=== PATIENT | male | born 1970 | race Caucasian/White ===

== ENCOUNTER 2018-10-08 13:18 | Emergency (ER) | payer MEDICAID ==
[2018-10-08] MEDS ORDERED: Bacitracin/Neomycin/Polymyxin B Oint 0.9 GM U/D Packet TOP ONE (13:33)
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
[2018-10-08] MEDS ORDERED: Bacitracin/Neomycin/Polymyxin B Oint 0.9 GM U/D Packet ONE (14:28)
== END 2018-10-08 14:30 | disposition home or self-care (01) ==
LOC: LL.ED 13:18
DX: T33.72XA Superficial frostbite of left knee and lower leg, initial encounter (principal); T33.71XA Superficial frostbite of right knee and lower leg, initial encounter; T33.832A Superficial frostbite of left toe(s), initial encounter; I10 Essential (primary) hypertension; E66.9 Obesity, unspecified; F17.210 Nicotine dependence, cigarettes, uncomplicated; X31.XXXA Exposure to excessive natural cold, initial encounter
CPT/HCPCS: 73660-TA; 99283

== ENCOUNTER 2019-11-09 11:41 | Emergency (ER) | payer MEDICAID ==
[2019-11-09] MEDS ORDERED: EPINEPHrine 0.3 MG/0.3 ML Pen Autoinjector IM ONE (11:44)
[2019-11-09] MEDS ORDERED: Norflurane/HFc 245FA Medium Stream Spray 103.5 ML Can ONE (11:50)
[2019-11-09] MEDS ORDERED: Racepinephrine 2.25% 0.5 ML Neb Soln NEB ONE (12:06)
[2019-11-09] MEDS ORDERED: Sodium Chloride 0.9% Inhalation Soln 3 ML Neb INH PRN (12:06)
[2019-11-09] MEDS ORDERED: methylPREDNISolone Sodium Succinate 125 MG/2 ML SDV ONE (12:14)
[2019-11-09] MEDS ORDERED: Sodium Chloride 0.9% 1,000 ML IV SCH (12:15)
[2019-11-09] MEDS ORDERED: Albuterol/Ipratropium 3.0-0.5 MG/3 ML Neb Soln NEB ONE (12:31)
[2019-11-09] MEDS ORDERED: Albuterol/Ipratropium 3.0-0.5 MG/3 ML Neb Soln ONE (12:32)
[2019-11-09] MEDS ORDERED: Famotidine 20 MG/2 ML SDV ONE (12:46)
--- NOTE | 2019-11-09 13:47 | EDM.PDOC ---
ED HPI GENERAL MEDICAL PROBLEM - General Chief Complaint: Respiratory Problem Stated Complaint: shortness of breath Time Seen by Provider: 11/09/19 11:46 Source of Information: Reports: Patient History Limitations: Reports: Respiratory Distress - History of Present Illness INITIAL COMMENTS - FREE TEXT/NARRATIVE: Pt ate Kiwi about 45 minutes ago Now with allergic reaction Difficulty breathing SOB Throat feels swollen and closed off Took 3 Benadryl at home No previous hx/o same Onset: Today, Sudden Duration: Minutes:, Getting Worse Location: Reports: Generalized Associated Symptoms: Reports: Shortness of Breath Treatments TREASURY AGENT: Reports: Other (see below) Other Treatments TREASURY AGENT: benadryl - Related Data Allergies Allergy/AdvReac Type Severity Reaction Status Date / Time No Known Allergies Allergy Verified 09/05/18 21:21 Home Meds: Home Meds Naproxen Sodium [Aleve] 660 mg PO BID PRN 10/08/18 [History] Albuterol Sulfate [Albuterol Sulfate Hfa] 2 inhalation IH ASDIRECTED PRN [History] Aspirin 162 mg PO BEDTIME 11/09/19 [History] Budesonide/Formoterol Fumarate [Symbicort 80-4.5 MCG] 2 puff IH DAILY 11/09/19 [ History] Lurasidone HCl [Latuda] 40 mg PO DAILY 11/09/19 [History] Oxybutynin Chloride 2.5 mg PO TID 11/09/19 [History] Tamsulosin [Tamsulosin 24 Hr] 0.4 mg PO DAILY 11/09/19 [History] Zolpidem Tartrate 10 mg PO BEDTIME PRN 11/09/19 [History] atorvaSTATin [Lipitor] 20 mg PO BEDTIME 11/09/19 [History] traZODone HCl [Trazodone HCl] 50 mg PO BEDTIME PRN 11/09/19 [History] Past Medical History - Past Health History Medical/Surgical History: Denies Medical/Surgical History Cardiovascular History: Reports: High Cholesterol, Hypertension, Other (See Below) Musculoskeletal History: Reports: Arthritis, Fracture, Osteoarthritis, Other ( See Below) Other Musculoskeletal History: Fracture of the second metacarpal of the right handed 2010 requiring surgery as below. Psychiatric History: Reports: Addiction, Anxiety, Depression, Other (See Below) Other Psychiatric History: History of alcohol abuse Endocrine/Metabolic History: Reports: Obesity/BMI 30+ - Infectious Disease History Infectious Disease History: Reports: Other (See Below) (TB exposure with prophylactic) Other Infectious Disease History: treated preventative for TB 2007 or prior - Past Surgical History Musculoskeletal Surgical History: Reports: Other (See Below) Other Musculoskeletal Surgeries/Procedures:: Ligamental revision and bone resection of the second metacarpal of the right hand in 2011. Social & Family History - Tobacco Use Smoking Status *Q: Current Every Day Smoker Years of Tobacco use: 10 Packs/Tins Daily: 15 - Caffeine Use Caffeine Use: Reports: Soda Other Caffeine Use: 3 sodas per day - Recreational Drug Use Recreational Drug Use: Yes Drug Use in Last 12 Months: No - Living Situation & Occupation Occupation: Unemployed ED ROS GENERAL - Review of Systems Review Of Systems: See Below HEENT: Reports: Other (Throat feels closed off) Respiratory: Reports: Shortness of Breath ED EXAM, GENERAL - Physical Exam Exam: See Below Exam Limited By: Respiratory Distress General Appearance: Anxious, Severe Distress Throat/Mouth: Normal Oropharynx, Other (Hoarse voice) Neck: Supple Respiratory/Chest: Decreased Breath Sounds, Wheezing, Accessory Muscle Use, Retractions Cardiovascular: Regular Rate, Rhythm GI/Abdominal: Non-Tender Course - Vital Signs Last Recorded V/S: Last Vital Signs Temp 98.3 F 11/09/19 11:55 Pulse 111 H 11/09/19 11:55 Resp 24 H 11/09/19 11:55 BP 152/96 H 11/09/19 11:55 Pulse Ox 89 L 11/09/19 11:55 - Orders/Labs/Meds Orders: Active Orders 24 hr Category Date Time Status RT Aerosol Therapy [RC] ASDIRECTED Care 11/09/19 12:06 Active RT Aerosol Therapy [RC] ASDIRECTED Care 11/09/19 12:32 Active Chest 1V Frontal [CR] Stat Exams 11/09/19 11:46 Taken Sodium Chloride 0.9% Med 11/09/19 12:06 Active 3 ml INH ASDIRECTED PRN Medication Orders Sodium Chloride (Sodium Chloride 0.9%) 3 ml INH ASDIRECTED PRN PRN Reason: mix with racepinephrine neb Meds: Medications Generic Name Dose Route Start Last Admin Trade Name Freq PRN Reason Stop Dose Admin Sodium Chloride 3 ml 11/09/19 12:06 Sodium Chloride 0.9% INH ASDIRECTED PRN mix with racepinephrine neb Discontinued Medications Generic Name Dose Route Start Last Admin Trade Name Mindy PRN Reason Stop Dose Admin Albuterol/Ipratropium 3 ml 11/09/19 12:31 Duoneb 3.0-0.5 Mg/3 Ml NEB 11/09/19 12:32 ONETIME ONE Albuterol/Ipratropium Confirm 11/09/19 12:32 Duoneb 3.0-0.5 Mg/3 Ml Administered 11/09/19 12:33 Dose 3 ml .ROUTE .STK-MED ONE Epinephrine HCl 0.3 mg 11/09/19 11:44 Epipen IM 11/09/19 11:45 ONETIME ONE Famotidine Confirm 11/09/19 12:46 Pepcid Administered 11/09/19 12:47 Dose 40 mg .ROUTE .STK-MED ONE Methylprednisolone Sodium Succinate Confirm 11/09/19 12:14 Solu-Medrol Administered 11/09/19 12:15 Dose 125 mg .ROUTE .STK-MED ONE Norflurane Confirm 11/09/19 11:50 Pain Ease Ellery Administered 11/09/19 11:51 Dose 103.5 ml .ROUTE .STK-MED ONE Racepinephrine 0.5 ml 11/09/19 12:06 S-2 2.25% NEB 11/09/19 12:07 ONETIME ONE - Re-Assessments/Exams Free Text/Narrative Re-Assessment/Exam: 11/09/19 13:45 Pt given Epi-pen in ER Also with Solu-medrol 125 mg IV and Pepcid 40 mg IV Pt given Racemic-epi HHN and Albuterol HHN Pt given IVF BP much improved and RA sats now 93% Sats had been in the 80's and required 10 L by NRBM Departure - Departure Time of Disposition: 14:00 Disposition: Home, Self-Care 01 Clinical Impression: Allergic reaction Qualifiers: Encounter type: initial encounter Qualified Code(s): T78.40XA - Allergy, unspecified, initial encounter - Discharge Information *PRESCRIPTION DRUG MONITORING PROGRAM REVIEWED*: Not Applicable *COPY OF PRESCRIPTION DRUG MONITORING REPORT IN PATIENT NIKO: Not Applicable Instructions: Shortness of Breath, Adult, [id number] Referrals: Mihaela Chopra PA-C [Primary Care Provider] - Additional Instructions: Follow up in clinic Sepsis Event Note - Evaluation Sepsis Screening Result: No Definite Risk - Focused Exam Vital Signs: Vital Signs Temp Pulse Resp BP Pulse Ox 11/09/19 11:55 98.3 F 111 H 24 H 152/96 H 89 L 11/09/19 11:49 98.3 F 88 24 H 152/96 H 88 L Date Exam was Performed: 11/09/19 Time Exam was Performed: 13:42 - My Orders Last 24 Hours: My Active Orders 11/09/19 11:46 Chest 1V Frontal [CR] Stat 11/09/19 12:06 RT Aerosol Therapy [RC] ASDIRECTED Sodium Chloride 0.9% 3 ml INH ASDIRECTED PRN 11/09/19 12:32 RT Aerosol Therapy [RC] ASDIRECTED - Assessment/Plan Last 24 Hours: My Active Orders 11/09/19 11:46 Chest 1V Frontal [CR] Stat 11/09/19 12:06 RT Aerosol Therapy [RC] ASDIRECTED Sodium Chloride 0.9% 3 ml INH ASDIRECTED PRN 11/09/19 12:32 RT Aerosol Therapy [RC] ASDIRECTED
[2019-11-09 14:15] VITALS: BP 126/77; PULSE 91
== END 2019-11-09 14:25 | disposition home or self-care (01) ==
LOC: LL.ED 11:41
DX: T78.40XA Allergy, unspecified, initial encounter (principal); I10 Essential (primary) hypertension; E78.00 Pure hypercholesterolemia, unspecified; M19.90 Unspecified osteoarthritis, unspecified site; F41.9 Anxiety disorder, unspecified; F32.9 Major depressive disorder, single episode, unspecified; E66.9 Obesity, unspecified; F17.210 Nicotine dependence, cigarettes, uncomplicated; Z79.899 Other long term (current) drug therapy; Z79.82 Long term (current) use of aspirin
CPT/HCPCS: 71045; 99285; A9270; J2930; J3490; J7030; J7620-GY

== ENCOUNTER 2020-11-10 03:34 | Emergency (ER) | payer MEDICAID ==
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
[2020-11-10] MEDS ORDERED: Bacitracin/Neomycin/Polymyxin B Oint 0.9 GM U/D Packet TOP ONE (04:09)
== END 2020-11-10 04:20 | disposition home or self-care (01) ==
LOC: LL.ED 03:34
DX: S91.332A Puncture wound without foreign body, left foot, initial encounter (principal); J44.9 Chronic obstructive pulmonary disease, unspecified; I10 Essential (primary) hypertension; M19.90 Unspecified osteoarthritis, unspecified site; F41.8 Other specified anxiety disorders; E78.00 Pure hypercholesterolemia, unspecified; E11.9 Type 2 diabetes mellitus without complications; E66.9 Obesity, unspecified; Z68.41 Body mass index [BMI] 40.0-44.9, adult; Z91.018 Allergy to other foods; Z91.040 Latex allergy status; Z79.82 Long term (current) use of aspirin; Z72.0 Tobacco use; Z79.899 Other long term (current) drug therapy; W45.0XXA Nail entering through skin, initial encounter
CPT/HCPCS: 99283

== ENCOUNTER 2020-11-11 03:10 | Emergency (ER) | payer MEDICAID ==
--- NOTE | 2020-11-11 03:36 | EDM.PDOC ---
ED HPI GENERAL MEDICAL PROBLEM - General Chief Complaint: Diabetic Complaint Stated Complaint: HYPOGLYCEMIA Time Seen by Provider: 11/11/20 03:30 Source of Information: Reports: Patient, Old Records ([facility] EMR. No paper hospital chart available.) History Limitations: Reports: Altered Mental Status - History of Present Illness INITIAL COMMENTS - FREE TEXT/NARRATIVE: The patient rode his bicycle to the emergency room for evaluation of low blood sugars at home, including an Accu-Chek in the 40s at about 8:15 PM yesterday evening with some disorientation, blurred vision, headache, increased anxiety, etc.. He did drink some orange juice and eat some food thereafter with home Accu-Chek of 100 mg percent at midnight right before he went to bed. His Accu- Chek was 102 mg percent shortly prior to arrival with the patient concerned that his blood sugar was not higher. He did not have any symptoms at that time, however he wanted to be evaluated. The patient denies any chest pain/pressure, heart flutter, orthostasis, orthopnea, diaphoresis, paresthesias, recent decreased exercise tolerance, or any other anginal-type symptoms. No recent history of abdominal pain, heartburn, nausea, diarrhea, melena, gross hematochezia, or any food intolerance, including fatty foods, etc.. No recent history of abdominal pain, heartburn, nausea, diarrhea, melena, gross hematochezia, or any food intolerance, including fatty foods, etc.. The patient also denies any recent fever, cough, wheezing, dyspnea, etc.. No history of recent headaches, diplopia, change in mental status, or other change in neurological status. Onset: Gradual Onset Date: 11/10/20 Onset Time: 20:15 Duration: Improving Location: Reports: Other (No pain) Quality: Reports: Same as Previous Episode Severity: Mild Improves with: Reports: Other (As above) Worsens with: Reports: None Context: Reports: Other (As above). 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 - Related Data Allergies Allergy/AdvReac Type Severity Reaction Status Date / Time kiwi Allergy Anaphylactic Verified 11/10/20 03:36 Shock Latex, Natural Rubber Allergy Anaphylactic Verified 11/10/20 03:36 Shock Home Meds: Home Meds Naproxen Sodium [Aleve] 660 mg PO BID PRN 10/08/18 [History] Albuterol Sulfate [Albuterol Sulfate Hfa] 2 inhalation IH ASDIRECTED PRN 11/09/19 [History] Aspirin 81 mg PO BEDTIME 11/09/19 [History] Budesonide/Formoterol Fumarate [Symbicort 80-4.5 MCG] 2 puff IH DAILY 11/09/19 [History] Lurasidone HCl [Latuda] 60 mg PO DAILY 11/09/19 [History] atorvaSTATin [Lipitor] 20 mg PO BEDTIME 11/09/19 [History] QUEtiapine [SEROquel] 25 mg PO BEDTIME 11/10/20 [History] Empagliflozin [Jardiance] 10 mg PO DAILY 11/11/20 [History] metFORMIN [Glucophage] 1,000 mg PO BID 11/11/20 [History] Past Medical History Cardiovascular History: Reports: Arrhythmia, High Cholesterol, Hypertension, Other (See Below) Other Cardiovascular History: Short [place] interval. Respiratory History: Reports: COPD Musculoskeletal History: Reports: Arthritis, Fracture, Osteoarthritis, Other (See Below) Other Musculoskeletal History: Fracture of the second metacarpal of the right handed 2010 requiring surgery as below. Psychiatric History: Reports: Addiction, Anxiety, Depression, Psychosis, Other (See Below) Other Psychiatric History: History of alcohol abuse and use of illicit drugs including IV drug use as below. Endocrine/Metabolic History: Reports: Diabetes, Type II, Obesity/BMI 30+ - Infectious Disease History Infectious Disease History: Reports: TB, Other (See Below) Other Infectious Disease History: TB exposure in about 2007 with prophylactic therapy. - Past Surgical History Musculoskeletal Surgical History: Reports: Other (See Below) Other Musculoskeletal Surgeries/Procedures:: Ligamental revision and bone resection of the second metacarpal of the right hand in 2010. - Past Imaging History Past Imaging History: Reports: MRI (MRI of the brain on 08/01/2020.) Social & Family History - Tobacco Use Tobacco Use Status *Q: Current Every Day Tobacco User Tobacco Use Within Last Twelve Months: Cigarettes Years of Tobacco use: 30 Packs/Tins Daily: 1.5 Used Tobacco, but Quit: No Smoking Cessation Information Provided To Patient: Yes - Caffeine Use Caffeine Use: Reports: Coffee, Soda Other Caffeine Use: 3 sodas per day - Recreational Drug Use Recreational Drug Use: Yes Drug Use in Last 12 Months: Yes Recreational Drug Type: Reports: Amphetamines (Speed), Cocaine, Marijuana/Snehal sh, Methamphetamine Recreational Drug Use Frequency: Weekly - Living Situation & Occupation Living situation: Reports: with Family (Mother, who he takes care of.) Occupation: Unemployed ED ROS GENERAL - Review of Systems Review Of Systems: Comprehensive ROS is negative, except as noted in HPI. ED EXAM GENERAL NO PERIP PULSE - Physical Exam Exam: See Below Exam Limited By: No Limitations General Appearance: Alert, WD/WN, No Apparent Distress, Anxious (Moderate to severe) Head: Atraumatic, Normocephalic Neck: Normal Inspection, Supple, Non-Tender, Full Range of Motion. No: Lymphadenopathy (L), Lymphadenopathy (R), Thyromegaly Respiratory/Chest: No Respiratory Distress, Lungs Clear, Normal Breath Sounds, No Accessory Muscle Use, Chest Non-Tender. No: Pleural Rub, Retractions Cardiovascular: Normal Peripheral Pulses, Regular Rate, Rhythm, No Edema, No Gallop, No JVD, No Murmur, No Rub. No: Gallop/S3, Gallop/S4, Friction Rub GI/Abdominal: Normal Bowel Sounds, Soft, Non-Tender, No Organomegaly, No Distention, No Abnormal Bruit, No Mass. No: Guarding (Male) Exam: Deferred Rectal (Males) Exam: Deferred Back Exam: Normal Inspection, Full Range of Motion. No: Muscle Spasm Extremities: Normal Inspection, Normal Range of Motion, Non-Tender, No Pedal Edema, Normal Capillary Refill. No: Stone's Sign Neurological: Alert, Oriented, CN II-XII Intact, Normal Cognition, Normal Gait, No Motor/Sensory Deficits Psychiatric: Anxious (Moderate to severe), Depressed Mood (Moderate with adequate eye contact) Skin Exam: Warm, Dry, Intact, Normal Color, No Rash. No: Diaphoretic, Wound/Incision Lymphatic: No Adenopathy Course - Vital Signs Last Recorded V/S: Last Vital Signs Temp 36.1 C 11/11/20 03:12 Pulse 99 11/11/20 03:12 Resp 14 11/11/20 03:12 BP 134/79 11/11/20 03:12 Pulse Ox 98 11/11/20 03:12 Vital Signs - 24 hr 11/11/20 03:12 Temperature [ 36.1 C Temporal] Pulse, 99 Peripheral [ Left Pulse Oximetry] Respiratory 14 Rate Blood Pressure 134/79 [Left Upper Arm ] O2 Sat by Pulse 98 Oximetry - Orders/Labs/Meds Orders: Active Orders 24 hr Category Date Time Status Blood Glucose Check, Bedside [RC] STAT Care 11/11/20 03:20 Active Labs: Stat Accu-Chek 117 mg percent Meds: None - Radiology Interpretation Free Text/Narrative:: None Departure - Departure Time of Disposition: 04:07 Disposition: Home, Self-Care 01 Condition: Fair Clinical Impression: Mixed anxiety depressive disorder, Tobacco abuse counseling COPD (chronic obstructive pulmonary disease) Qualifiers: COPD type: emphysema Emphysema type: panlobular Qualified Code(s): J43.1 - Panlobular emphysema Hypertension Qualifiers: Hypertension type: essential hypertension Qualified Code(s): I10 - Essential (primary) hypertension Diabetes mellitus Qualifiers: Diabetes mellitus type: type 2 Diabetes mellitus terminal computer operator insulin use: without alf use Diabetes mellitus complication status: without complication Qualified Code(s): E11.9 - Type 2 diabetes mellitus without complications - Discharge Information *PRESCRIPTION DRUG MONITORING PROGRAM REVIEWED*: Not Applicable *COPY OF PRESCRIPTION DRUG MONITORING REPORT IN PATIENT NIKO: Not Applicable Instructions: Steps to Quit Smoking, [id number], Health Risks of Smoking, Type 2 Diabetes Mellitus, Self Care, Adult, [id number], Hypoglycemia, [id number] Referrals: PCP,Unknown [Primary Care Provider] - Forms: ED Department Discharge Additional Instructions: 1. Follow-up with your regular provider later today as discussed for further evaluation of your medical therapy and discussion of your emergency room visits tonight and last night. 2. Low blood sugar precautions as per information provided and discussed, including drinking orange juice, eating sugar, repeating home blood sugar evaluations on an hourly basis thereafter, etc. 3. Stop all tobacco use LUIS as directed/per provided information and consider contacting Quit LIne, etc.. 4. Immediately after this visit verify that your cellular telephone's voicemail has been activated and is empty. Also verify that your home telephone's answering machine is operating properly and has space to receive messages. Note that it is sometimes necessary for us to be able to contact you at a later date to discuss your medical care. 5. Please remember that we are ALWAYS here for you and want to answer any questions you may have. Feel free to call the hospital any time and we call you back LUIS. Sepsis Event Note (ED) - Evaluation Sepsis Screening Result: No Definite Risk - Focused Exam Vital Signs: Vital Signs Temp Pulse Resp BP Pulse Ox 11/11/20 03:12 36.1 C 99 14 134/79 98 - Problem List & Annotations (1) Diabetes mellitus SNOMED Code(s): 17502682 Code(s): E11.9 - TYPE 2 DIABETES MELLITUS WITHOUT COMPLICATIONS Status: Acute Priority: High Current Visit: Yes Annotation/Comment:: Mild hypoglycemic episode at home as above with complete resolution of symptoms prior to arrival. Patient currently takes his Accu-Cheks on a 3 times daily basis with home Accu-Cheks averaging in the 100s by his history. Hypoglycemia precautions, diet, etc. were extensively discussed. Patient likely needs his medications adjusted with previous history of hypoglycemia and currently too tight blood sugar control based on the above history. Close follow-up by regular provider as per discharge instructions. Qualifiers: Diabetes mellitus type: type 2 Diabetes mellitus alf insulin use: without alf use Diabetes mellitus complication status: without complication Qualified Code(s): E11.9 - Type 2 diabetes mellitus without complications (2) Mixed anxiety depressive disorder SNOMED Code(s): 783409096 Code(s): F41.8 - OTHER SPECIFIED ANXIETY DISORDERS Status: Chronic Priority: High Current Visit: Yes Annotation/Comment:: Poor control based on today's and yesterday's exam in the emergency room. By patient history he did have his medications changed earlier yesterday by his regular provider, including initiation of Latuda and Seroquel. Patient is having significantly increase stressors taking care of his sick mother at home. No suicidal ideation today, however some psychosis. Continue to observe closely by his regular provider, including evaluation of his current medications both for his emotional status and his diabetes as above. No persistent insomnia with ER visits at 3 AM both on 11/10 and 11/11. Emotional support was provided. Note history of illicit drug use as above. Consider psychiatric referral, inpatient therapy, etc. depending on his clinical course. (3) COPD (chronic obstructive pulmonary disease) SNOMED Code(s): 22296229 Code(s): J44.9 - CHRONIC OBSTRUCTIVE PULMONARY DISEASE, UNSPECIFIED Status: Chronic Priority: Medium Current Visit: Yes Annotation/Comment:: No recent fever bronchitic type symptoms. Qualifiers: COPD type: emphysema Emphysema type: panlobular Qualified Code(s): J43.1 - Panlobular emphysema (4) Hypertension SNOMED Code(s): 53370897 Code(s): I10 - ESSENTIAL (PRIMARY) HYPERTENSION Status: Chronic Priority: Medium Current Visit: Yes Annotation/Comment:: Blood pressure somewhat elevated in the ER yesterday secondary to his anxiety however under good control today. Continue to observe closely by his regular providers. Qualifiers: Hypertension type: essential hypertension Qualified Code(s): I10 - Essential (primary) hypertension (5) Tobacco abuse counseling SNOMED Code(s): 314833314, 638774767, 850184847 Code(s): Z71.6 - TOBACCO ABUSE COUNSELING Status: Chronic Priority: Medium Current Visit: Yes Annotation/Comment:: Tobacco cessation was once again strongly encouraged, though this may need to be delayed until his emotion al status has improved. Tobacco cessation information was once again provided. - Problem List Review Problem List Initiated/Reviewed/Updated: Yes - My Orders Last 24 Hours: My Active Orders 11/11/20 03:20 Blood Glucose Check, Bedside [RC] STAT - Assessment/Plan Last 24 Hours: My Active Orders 11/11/20 03:20 Blood Glucose Check, Bedside [RC] STAT Assessment:: As above Plan: As above. Extensive precautions were given to the patient, who is in agreement with the treatment plan. See Patient Instructions for further treatment and plan.
== END 2020-11-11 04:05 | disposition home or self-care (01) ==
LOC: LL.ED 03:10
DX: E11.9 Type 2 diabetes mellitus without complications (principal); I10 Essential (primary) hypertension; J43.1 Panlobular emphysema; F41.8 Other specified anxiety disorders; E78.00 Pure hypercholesterolemia, unspecified; E66.9 Obesity, unspecified; Z68.41 Body mass index [BMI] 40.0-44.9, adult; Z71.6 Tobacco abuse counseling; Z91.018 Allergy to other foods; Z91.040 Latex allergy status; Z79.82 Long term (current) use of aspirin; Z79.84 Long term (current) use of oral hypoglycemic drugs
CPT/HCPCS: 99283; 99284

== ENCOUNTER 2020-11-12 14:54 | Emergency (ER) | payer MEDICAID ==
--- NOTE | 2020-11-12 15:28 | EDM.PDOC ---
ED HPI GENERAL MEDICAL PROBLEM - General Chief Complaint: General Stated Complaint: shaking Time Seen by Provider: 11/12/20 15:14 Source of Information: Reports: Patient History Limitations: Reports: No Limitations - History of Present Illness INITIAL COMMENTS - FREE TEXT/NARRATIVE: Patient comes in by EMS after he was concerned that he had a blood sugar of "83" and thought he felt shaky. Called ambulance and they had a reading of 190. He arrives to ER saying symptoms resolved. Updated accucheck in ER 153. It is noted that this same patient came in around 0300 on 11/09 for small wound on foot from nail and 11/10 for noting that an earlier accucheck was in 40s and after drinking juice/eating it only climbed to around 110. He was to follow up with PCP. Is on Jardiance and Metformin. Currently without complaint - Related Data Allergies Allergy/AdvReac Type Severity Reaction Status Date / Time kiwi Allergy Anaphylactic Verified 11/12/20 15:11 Shock Latex, Natural Rubber Allergy Anaphylactic Verified 11/12/20 15:11 Shock Home Meds: Home Meds Naproxen Sodium [Aleve] 660 mg PO BID PRN 10/08/18 [History] Albuterol Sulfate [Albuterol Sulfate Hfa] 2 inhalation IH ASDIRECTED PRN 11/09/19 [History] Aspirin 81 mg PO BEDTIME 11/09/19 [History] Budesonide/Formoterol Fumarate [Symbicort 80-4.5 MCG] 2 puff IH DAILY 11/09/19 [History] Lurasidone HCl [Latuda] 60 mg PO DAILY 11/09/19 [History] atorvaSTATin [Lipitor] 20 mg PO BEDTIME 11/09/19 [History] QUEtiapine [SEROquel] 25 mg PO BEDTIME 11/10/20 [History] Empagliflozin [Jardiance] 10 mg PO DAILY 11/11/20 [History] metFORMIN [Glucophage] 1,000 mg PO BID 11/11/20 [History] Past Medical History - Past Health History Medical/Surgical History: Denies Medical/Surgical History Cardiovascular History: Reports: Arrhythmia, High Cholesterol, Hypertension, Other (See Below) Other Cardiovascular History: Short [place] interval. Respiratory History: Reports: COPD Musculoskeletal History: Reports: Arthritis, Fracture, Osteoarthritis, Other (See Below) Other Musculoskeletal History: Fracture of the second metacarpal of the right handed 2010 requiring surgery as below. Psychiatric History: Reports: Addiction, Anxiety, Depression, Psychosis, Other (See Below) Other Psychiatric History: History of alcohol abuse and use of illicit drugs including IV drug use as below. Endocrine/Metabolic History: Reports: Diabetes, Type II, Obesity/BMI 30+ - Infectious Disease History Infectious Disease History: Reports: TB, Other (See Below) Other Infectious Disease History: TB exposure in about 2007 with prophylactic therapy. - Past Surgical History Musculoskeletal Surgical History: Reports: Other (See Below) Other Musculoskeletal Surgeries/Procedures:: Ligamental revision and bone resection of the second metacarpal of the right hand in 2010. - Past Imaging History Past Imaging History: Reports: MRI (MRI of the brain on 08/01/2020.) Social & Family History - Caffeine Use Caffeine Use: Reports: Coffee, Soda Other Caffeine Use: 3 sodas per day - Living Situation & Occupation Living situation: Reports: with Family (Mother, who he takes care of.) Occupation: Unemployed ED ROS GENERAL - Review of Systems Review Of Systems: Comprehensive ROS is negative, except as noted in HPI. ED EXAM, GENERAL - Physical Exam Exam: See Below Exam Limited By: No Limitations General Appearance: Alert, No Apparent Distress, Obese Eye Exam: Bilateral Eye: EOMI, PERRL Ears: Hearing Grossly Normal Nose: No: Nasal Deformity, Nasal Swelling, Nasal Drainage Throat/Mouth: Normal Lips, No Airway Compromise Head: Atraumatic, Normocephalic Neck: Supple Respiratory/Chest: No Respiratory Distress, Lungs Clear, Normal Breath Sounds, No Accessory Muscle Use Cardiovascular: Regular Rate, Rhythm, No Murmur GI/Abdominal: Soft, Non-Tender (Male) Exam: Deferred Rectal (Males) Exam: Deferred Back Exam: No: Muscle Spasm Extremities: Normal Capillary Refill Neurological: Alert, Normal Gait Psychiatric: Normal Affect, Normal Mood Skin Exam: Warm, Dry, Normal Color Course - Vital Signs Last Recorded V/S: Last Vital Signs Temp 36.4 C 11/12/20 15:01 Pulse 86 11/12/20 15:01 Resp 16 11/12/20 15:01 BP 160/72 H 11/12/20 15:01 Pulse Ox 96 11/12/20 15:01 - Orders/Labs/Meds Orders: Active Orders 24 hr Category Date Time Status CBC WITH AUTO DIFF [HEME] Stat Lab 11/12/20 15:25 Ordered COMPREHENSIVE METABOLIC PN,CMP [CHEM] Stat Lab 11/12/20 15:25 Ordered MG [MAGNESIUM] [CHEM] Stat Lab 11/12/20 15:25 Ordered UA W/MICROSCOPIC [URIN] Stat Lab 11/12/20 15:25 Ordered Labs: Laboratory Tests 11/12/20 Range/Units 15:07 POC Glucose 153 H (65-110) mg/dl - Re-Assessments/Exams Free Text/Narrative Re-Assessment/Exam: 11/12/20 15:41 Patient ready to leave once he arrived and was told his blood sugar was normal. Up/pacing/did not want to wait on ER bed. Was receptive to having baseline labs drawn before leaving. Given that he has presented twice for these concerns it was suggested that for now he hold his Metformin and Jardiance and just keep track of sugar trends QID. To follow up with primary clinic at end of next week for review. Cannot rule out psychiatric component to visits. Departure - Departure Time of Disposition: 15:29 Disposition: Home, Self-Care 01 Condition: Good Clinical Impression: Low blood sugar reading - Discharge Information *PRESCRIPTION DRUG MONITORING PROGRAM REVIEWED*: Not Applicable *COPY OF PRESCRIPTION DRUG MONITORING REPORT IN PATIENT NIKO: Not Applicable Referrals: Paula Chaves PA [Primary Care Provider] - Forms: ED Department Discharge Additional Instructions: Stop taking your Metformin and the Jardiance for now. Check your blood sugars 4 times a day around 8am/noon/5pm/bedtime and keep a written record of them. Take the notebook to Paula/clinic at end of next week and review the numbers. Make medication adjustments as needed at that time. Follow up otherwise as needed if you have problems. Sepsis Event Note (ED) - Evaluation Sepsis Screening Result: No Definite Risk - Focused Exam Vital Signs: Vital Signs Temp Pulse Resp BP Pulse Ox 11/12/20 15:01 36.4 C 86 16 160/72 H 96 - My Orders Last 24 Hours: My Active Orders 11/12/20 15:25 CBC WITH AUTO DIFF [HEME] Stat COMPREHENSIVE METABOLIC PN,CMP [CHEM] Stat MG [MAGNESIUM] [CHEM] Stat UA W/MICROSCOPIC [URIN] Stat - Assessment/Plan Last 24 Hours: My Active Orders 11/12/20 15:25 CBC WITH AUTO DIFF [HEME] Stat COMPREHENSIVE METABOLIC PN,CMP [CHEM] Stat MG [MAGNESIUM] [CHEM] Stat UA W/MICROSCOPIC [URIN] Stat
[2020-11-12 15:54] LABS: CHLORIDE,CL 103 mmol/L (98-107); SODIUM,NA 139 mmol/L (136-145)
== END 2020-11-12 15:40 | disposition home or self-care (01) ==
LOC: LL.ED 14:54
DX: E11.649 Type 2 diabetes mellitus with hypoglycemia without coma (principal); E78.00 Pure hypercholesterolemia, unspecified; I10 Essential (primary) hypertension; J44.9 Chronic obstructive pulmonary disease, unspecified; M19.90 Unspecified osteoarthritis, unspecified site; E66.9 Obesity, unspecified; Z91.018 Allergy to other foods; Z91.040 Latex allergy status; Z79.82 Long term (current) use of aspirin; Z79.84 Long term (current) use of oral hypoglycemic drugs
CPT/HCPCS: 36415; 80053; 82962; 83735; 85025; 99283; 99284

== ENCOUNTER 2020-11-19 15:44 | Emergency (ER) | payer MEDICAID ==
--- NOTE | 2020-11-19 16:25 | EDM.PDOC ---
ED HPI GENERAL MEDICAL PROBLEM - General Chief Complaint: General Stated Complaint: blisters to left palm Time Seen by Provider: 11/19/20 16:00 Source of Information: Reports: Patient History Limitations: Reports: No Limitations - History of Present Illness INITIAL COMMENTS - FREE TEXT/NARRATIVE: He presents to the ED complaining of blisters on the left palm. Blisters have been present for about a week. He did take acyclovir for 5 days, but is out of it now. He reports he has had similar blisters on that palm and on the left forearm in the past and been told it was herpes. He reports a positive culture for herpes in the past. He denies lesions anywhere else on the body. Lesions are painful. No itching. Otherwise without acute complaints. left palm Pain Score (Numeric/FACES): 4 - Related Data Allergies Allergy/AdvReac Type Severity Reaction Status Date / Time kiwi Allergy Anaphylactic Verified 11/19/20 15:47 Shock Latex, Natural Rubber Allergy Anaphylactic Verified 11/19/20 15:47 Shock Home Meds: Home Meds Naproxen Sodium [Aleve] 660 mg PO BID PRN 10/08/18 [History] Albuterol Sulfate [Albuterol Sulfate Hfa] 2 inhalation IH ASDIRECTED PRN 11/09/19 [History] Aspirin 81 mg PO BEDTIME 11/09/19 [History] Budesonide/Formoterol Fumarate [Symbicort 80-4.5 MCG] 2 puff IH DAILY 11/09/19 [History] Lurasidone HCl [Latuda] 60 mg PO DAILY 11/09/19 [History] atorvaSTATin [Lipitor] 20 mg PO BEDTIME 11/09/19 [History] QUEtiapine [SEROquel] 25 mg PO BEDTIME 11/10/20 [History] Past Medical History - Past Health History Medical/Surgical History: Denies Medical/Surgical History Cardiovascular History: Reports: Arrhythmia, High Cholesterol, Hypertension, Other (See Below) Other Cardiovascular History: Short ID interval. Respiratory History: Reports: COPD Musculoskeletal History: Reports: Arthritis, Fracture, Osteoarthritis, Other (See Below) Other Musculoskeletal History: Fracture of the second metacarpal of the right handed 2010 requiring surgery as below. Psychiatric History: Reports: Addiction, Anxiety, Depression, Psychosis, Other (See Below) Other Psychiatric History: History of alcohol abuse and use of illicit drugs including IV drug use as below. Endocrine/Metabolic History: Reports: Diabetes, Type II, Obesity/BMI 30+ - Infectious Disease History Infectious Disease History: Reports: TB, Other (See Below) Other Infectious Disease History: TB exposure in about 2007 with prophylactic therapy. - Past Surgical History Musculoskeletal Surgical History: Reports: Other (See Below) Other Musculoskeletal Surgeries/Procedures:: Ligamental revision and bone resection of the second metacarpal of the right hand in 2010. - Past Imaging History Past Imaging History: Reports: MRI (MRI of the brain on 08/01/2020.) Social & Family History - Caffeine Use Caffeine Use: Reports: Coffee, Soda Other Caffeine Use: 3 sodas per day - Living Situation & Occupation Living situation: Reports: with Family (Mother, who he takes care of.) Occupation: Unemployed ED ROS GENERAL - Review of Systems Review Of Systems: See Below Constitutional: Denies: Fever, Chills Respiratory: Denies: Shortness of Breath, Cough Cardiovascular: Denies: Chest Pain Endocrine: Denies: Fatigue GI/Abdominal: Denies: Abdominal Pain Neurological: Denies: Confusion, Dizziness Psychiatric: Denies: Anxiety, Depression ED EXAM, GENERAL - Physical Exam Exam: See Below Exam Limited By: No Limitations General Appearance: Alert, WD/WN, No Apparent Distress Respiratory/Chest: No Respiratory Distress, Lungs Clear Cardiovascular: Regular Rate, Rhythm Skin Exam: Other (4 dark oval shaped blisters, largest 2x4 mm in the center of the left palm. No dried or open lesions. No surrounding redness or tenderness. No other lesions noted.) Course - Vital Signs Text/Narrative:: Will treat empirically for herpes and have him follow up in clinic this week. Last Recorded V/S: Last Vital Signs Temp 36.6 C 11/19/20 15:48 Pulse 78 11/19/20 15:48 Resp 20 11/19/20 15:48 BP 133/72 11/19/20 15:48 Pulse Ox 96 11/19/20 15:48 Departure - Departure Time of Disposition: 16:18 Disposition: Home, Self-Care 01 Condition: Good Clinical Impression: Blister of hand - Discharge Information *PRESCRIPTION DRUG MONITORING PROGRAM REVIEWED*: Not Applicable *COPY OF PRESCRIPTION DRUG MONITORING REPORT IN PATIENT NIKO: Not Applicable Instructions: Blisters, Adult Referrals: Paula Chaves PA [Primary Care Provider] - Additional Instructions: Famcicilovir 500 mg 3 times daily for 10 days. Follow up with primary provider next week if not improving. Sepsis Event Note (ED) - Evaluation Sepsis Screening Result: No Definite Risk - Focused Exam Vital Signs: Vital Signs Temp Pulse Resp BP Pulse Ox 11/19/20 15:48 36.6 C 78 20 133/72 96
== END 2020-11-19 16:33 | disposition home or self-care (01) ==
LOC: LL.ED 15:44
DX: S60.522A Blister (nonthermal) of left hand, initial encounter (principal); I10 Essential (primary) hypertension; E78.00 Pure hypercholesterolemia, unspecified; J44.9 Chronic obstructive pulmonary disease, unspecified; E66.9 Obesity, unspecified; E11.9 Type 2 diabetes mellitus without complications; Z91.040 Latex allergy status; Z91.018 Allergy to other foods; Z79.82 Long term (current) use of aspirin; Z79.899 Other long term (current) drug therapy; X58.XXXA Exposure to other specified factors, initial encounter
CPT/HCPCS: 99282; 99283

== ENCOUNTER 2022-10-20 18:09 | Emergency (ER) | payer MEDICAID ==
[2022-10-20 18:52] LABS: CHLORIDE,CL 100 mmol/L (98-107); SODIUM,NA 135 mmol/L (136-145)
[2022-10-20 18:57] LABS: ANION GAP 12.2 meq/L (7-15); ESTIMATED GFR 65 mL/min (>=60)
== END 2022-10-20 19:40 ==
LOC: LL.ED 18:09
DX: M79.661 Pain in right lower leg (principal); M79.89 Other specified soft tissue disorders; E78.00 Pure hypercholesterolemia, unspecified; I10 Essential (primary) hypertension; J44.9 Chronic obstructive pulmonary disease, unspecified; M19.90 Unspecified osteoarthritis, unspecified site; E11.9 Type 2 diabetes mellitus without complications; E66.9 Obesity, unspecified; Z68.34 Body mass index [BMI] 34.0-34.9, adult; Z72.0 Tobacco use; Z91.018 Allergy to other foods; Z91.040 Latex allergy status; Z79.899 Other long term (current) drug therapy
CPT/HCPCS: 36415; 80053; 83036; 84550; 85025; 85379; 99284